=== PATIENT | female | born 1975 | race Caucasian/White ===

== ENCOUNTER 2017-02-13 13:06 | Day surgery (SDC) | payer OTHER ==
[~2017-02-13] VITALS: Ht 167.6 cm; Wt 70.3 kg
[2017-02-13] MEDS ORDERED: VALE530C PO (14:18)
[2017-02-13] MEDS ORDERED: RANI150C11 PO (14:18)
[2017-02-13] MEDS ORDERED: FLUT9.9S NASAL (14:18)
[2017-02-13] MEDS ORDERED: LEMON BALM (14:18)
[2017-02-13] MEDS ORDERED: IBUP200C11 PO (14:18)
[2017-02-13] MEDS ORDERED: PASSION FLOWER (14:18)
[2017-02-13] MEDS ORDERED: HYDR12.58 PO (14:18)
[2017-02-13 14:23] VITALS: Ht 167.6 cm; Wt 70.3 kg
[2017-02-13] MEDS ORDERED: PROPOFOL 20 ML ONE (16:25)
[2017-02-13] MEDS ORDERED: LIDOCAINE 2% (SDV) 5 ML INJ ONE (16:25)
[2017-02-13] MEDS ORDERED: MIDAZOLAM 1 MG/ML 2 ML INJ ONE (16:26)
[2017-02-13 16:32] VITALS: BP 157/89; PULSE 70; RESP 20
--- NOTE | 2017-02-13 17:42 | GILP ---
DATE OF PROCEDURE: 02/13/2017 PROCEDURE: Colonoscopy with biopsies. BRIEF HISTORY AND INDICATIONS: The patient is being evaluated for abdominal pain. PREMEDICATION: Monitored anesthesia care by anesthesiologist. SURGEON: Traci Mojica MD. INSTRUMENT USED: Olympus colonoscope. PREPARATION: Was adequate. TECHNIQUE: After informed consent, with the patient/relatives understanding the procedure, its indic ations potential risks and complications, including but not limited to: allergic reaction, bleeding, perforation, infection, missed lesions and after all pertinent questions were answered to the patie nt's satisfaction, the patient/relatives signed the witnessed informed consent. Following this, premedication was administered slowly IV push by under careful cardiovascular and re spiratory monitoring with pulse oximetry, automatic blood pressure and electric deicer assembler. Once the sedativ e effect was achieved, the patient was placed in the left lateral decubitus position, digital rectal examination was performed. The colonoscope was then introduced and advanced under visual control th roughout all segments of the colon including: the rectum, sigmoid, descending colon, splenic flexure , transverse colon, hepatic flexure, ascending colon and finally reaching the cecum which was clearl y identified by transillumination, finger indentation and the ileocecal valve. Careful examination o f the mucosa of the lower gastrointestinal tract both on insertion as well as withdrawal of the inst rument disclosed the following findings: Rectal Examination: No evidence of perirectal disease, no masses. Colonic Mucosa: The colonic mucosa is entirely unremarkable throughout. There is occasional diverti culum present in the left side of the colon. The ileocecal valve was clearly identified. Terminal ileum was examined and appears unremarkable. The instrument was withdrawn and on withdrawal of the instrument, random biopsies were obtained of the right and left side of the colon to rule out micro scopic lymphocytic or collagenous colitis. Moderate sized internal hemorrhoids were present. IMPRESSION: 1. Occasional left-sided diverticulosis. 2. Otherwise, normal colonic mucosa to cecum. 3. Random biopsies obtained, right and left colon to rule out microscopic lymphocytic or collagenou s colitis. 4. Moderate size internal hemorrhoids. PLAN: Pathology will be reviewed. Further recommendation will depend on the patient's clinical cou rse as well as review of pathology. Screening colonoscopy in 10 years is recommended. Dictated By: TRACI MOJICA MS/ROMINA Conf#: [id number] [facility]#: [id number]
--- NOTE | 2017-02-13 17:47 | GILP ---
DATE OF PROCEDURE: 02/13/2017 PROCEDURE PERFORMED: Esophagogastroduodenoscopy with biopsies. BRIEF HISTORY AND INDICATIONS: The patient is being evaluated for abdominal pain. PREMEDICATION: Monitored anesthesia care by anesthesiologist. SURGEON: Traci Mojica MD. INSTRUMENT USED: Olympus panendoscope. TECHNIQUE: After informed consent, with the patient/relatives understanding the procedure, its indic ations, potential risks and complications, including but not limited to: allergic reaction, bleeding , perforation or infection, and after all pertinent questions were answered to the patients satisfac tion, the patient/relatives signed witnessed informed consent. Following this, premedication was administered slowly IV push under careful cardiovascular and respi ratory monitoring with pulse oximetry, automatic blood pressure and braider operator. Once the sedative effect was achieved the patient was place in the left lateral decubitus, the panen doscope was introduced and advanced under visual control. Careful examination of the upper gastrointestinal tract, both on insertion as well as withdrawal of the instrument disclosed the following findings: ESOPHAGUS: The distal esophagus shows erythema and edema and superficial erosion of the mucosa. STOMACH: Upon entrance to the stomach air was insufflated, the gastric nj distended normally. T here is erythema and edema of the mucosa of a moderate degree. Biopsies were obtained to rule out H . pylori infection. PYLORUS: The pylorus appears patent and duodenum and appears unremarkable with no evidence of duode nitis, ulcer or neoplasm. IMPRESSION: 1. Erosive esophagitis. 2. Gastritis, rule out Helicobacter pylori infection, biopsies obtained. PLAN: The patient will be treated with proton pump inhibitor. Pathology will be reviewed as soon a s available. Further recommendation will depend on the patient's clinical course as well as review of biopsies. Dictated By: TRACI MOJICA MS/ROMINA Conf#: [id number] [facility]#: [id number]
== END 2017-02-13 19:22 | disposition home or self-care (01) ==
LOC: GIL 13:06
PROVIDERS: ATTEND Internal Medicine Gastroenterology
DX: K29.70 Gastritis, unspecified, without bleeding (principal); K20.9 Esophagitis, unspecified; K57.30 Diverticulosis of large intestine without perforation or abscess without bleeding; K64.8 Other hemorrhoids; R10.9 Unspecified abdominal pain; R19.7 Diarrhea, unspecified; R11.0 Nausea; K92.1 Melena; I10 Essential (primary) hypertension
CPT/HCPCS: 43239; 45380; 84703; 88305; J2250; Z7610